=== PATIENT | male | born 1945 | race Caucasian/White ===

== ENCOUNTER 2021-09-20 06:58 | Day surgery (SDC) | payer MEDICARE, SELFPAY ==
[2021-09-20] VITALS (7 sets, daily range): BP systolic 113–135; BP diastolic 57–83; PULSE 55–66; RESP 10–18; TEMP 36.3–36.8; O2SAT 98–100; BMI 24.7
--- NOTE | 2021-09-20 | PATH_ITS ---
[facility] Accession Number: [id number] . 01 Material submitted: . PART A: cecum - CECUM POLYP PART B: colon - DESCENDING COLON POLYP PART C: colon - RECTAL/SIGMOID COLON POLYP X3 . 01 Diagnosis: A. Cecum, Polyp, Biopsy: Tubular adenoma. . B. Descending Colon, Polyp, Biopsy: Hyperplastic polyp. . C. Rectosigmoid Colon, Polyp x3, Biopsies: Hyperplastic polyps. [facility] 09/22/2021 1330 Local . 01 Electronically signed: . Naila Allen MD, Pathologist NPI- [id number] . 01 Gross description: . Part A: CECUM POLYP: Received in formalin is 1 fragment(s) of bender, soft tissue measuring 0.3 x 0.3 x 0.3 cm submitted entirely in 1 cassette(s) Part B: DESCENDING COLON POLYP: Received in formalin is 1 fragment(s) of bender, soft tissue measuring 0.4 x 0.3 x 0.1 cm submitted entirely in 1 cassette(s) Part C: RECTAL/SIGMOID COLON POLYP X3: Received in formalin are 4 fragment(s) of bender, soft tissue measuring 0.4 x 0.3 x 0.2 cm to 0.3 x 0.2 x 0.1 cm submitted entirely in 1 cassette(s) /QBJ 09/21/2021 [facility] Local . 01 Pathologist provided ICD-10: D12.0 . 01 CPT . 822674, 507707, [id number] Specimen Comment: A courtesy copy of this report has been sent to [phone] Performed at: 01 [facility] [address] [place] [address] [address], [place], [place] [id number] MD Chema Ram MD Phone: [phone]
[2021-09-20 07:44] LABS: COVID19 -Nasal RAPID Negative (Negative)
--- NOTE | 2021-09-20 08:03 | PM.HP.1 ---
History of Present Illness History of Present Illness Date Patient Seen: 09/20/21 Time Patient Seen: 08:03 Chief complaint: SDC Narrative: Personal history of colon polyps family history of colon cancer. Patient History Medical History Coronary disease Hypertension PVD (peripheral vascular disease) Stroke Surgical History S/P hernia repair Stented coronary artery Family & Social History Social History: household members spouse Tobacco & Substance use: Smoking Status Former smoker alcohol intake former Substance Use Type does not use Meds Home Medications and Allergies Home Medications Medication Instructions Recorded Confirmed Type amlodipine 5 mg tablet 5 mg PO DAILY 09/20/21 09/20/21 History aspirin 81 mg tablet 81 mg PO DAILY 09/20/21 09/20/21 History atorvastatin 40 mg tablet 40 mg PO DAILY 09/20/21 09/20/21 History clopidogrel 75 mg tablet 75 tab PO DAILY 09/20/21 09/20/21 History lisinopril 30 mg tablet 30 mg PO DAILY 09/20/21 09/20/21 History Allergies Allergy/AdvReac Type Severity Reaction Status Date / Time No Known Drug Allergies Allergy Verified 09/20/21 07:45 Review of Systems Review of Systems ROS: Yes All systems reviewed with the patient and are negative except as otherwise documented Exam Const General: cooperative Nutritional Appearance: average body habitus Orientation: alert HENMT Head: normal to inspection Eyes General: appearance normal, both eyes and all related structures Neck Neck: normal visual inspection Chest Chest: normal inspection of the chest Resp Effort & Inspection: normal respiratory effort Cardio Rate: regular rate Skin General: no rashes or lesions noted Neuro General: patient alert and patient awake Extrem General: normal to inspection Psych Appearance: grossly normal Objective Labs Labs: Laboratory Results - last 24 hr 09/20/21 07:28 SARS-CoV-2 (PCR) Negative Assessment & Plan Assessment & Plan narrative: 76-year-old with a personal history of colon polyps family history of colon cancer. Colonoscopy is planned for today. Time Spent With Patient Critical Care time: I spent a total of [] minutes of critical care time on this patient's care today; this time is exclusive of procedural time.
--- NOTE | 2021-09-20 08:06 | PM.PREOP ---
Pre-operative Note COVID-19 COVID-19 status: Negative Result date/Date tested (Pos, Neg/Pending): 09/20/21 Criteria for continued procedure: Possibility delay results in more complex future surgery or treatment Interval Note History & Physical reviewed/Exam performed by Physician: Yes Changes to H&P: No ASA Class (for procedural sedation): II
[2021-09-20] MEDS: SODIUM CHLORIDE 0.9% 1,000 ML 84 ML IV (08:10)
--- NOTE | 2021-09-20 09:31 | PM.OP.COLON ---
Operative Date/Time/Diagnoses Date of procedure: 09/20/21 Time of procedure: 09:31 Pre-op diagnosis: Personal history of colon polyps family history of colon cancer Post-op diagnosis: same Procedure & Clinicians Study performed: Colonoscopy with cold forceps polypectomy cold snare polypectomy and hot snare polypectomy Same procedure as scheduled: Yes Indications: Family history of colon cancer personal history of colon polyps Surgeon: Moisés Thompson Procedure Notes SCOAP/Timeout: Done Procedure in detail: After the risks and benefits were explained, written and verbal informed consent was obtained. The patient was brought into the procedure room and placed into the left lateral decubitus position. Please see nurse carpenter helper maintenance notes for sedation details. Digital rectal examination was accomplished. The scope was introduced into the patient and advanced under direct visualization to the cecum as identified by the appendiceal orifice and ileocecal valve. The scope was slowly withdrawn to carefully examine the mucosa for any defects or lesions. Comprehensive imaging was accomplished throughout the rectum including the dentate line. The colon was decompressed, the scope was then removed from the patient who tolerated the procedure well. Adult colonoscope Bowel prep adequate Scope withdrawal time: 15 minutes Sedation minutes: 25 Complications: none Impression: There was a diminutive polyp in the cecum removed with cold forceps. In the descending colon there was a diminutive polyp removed with cold snare. In the rectosigmoid there were 3 polyps removed. These ranged in size from 5-6 mm. The 2 larger polyps were removed with hot snare the smallest with cold snare. Grade 1 to grade 2 hemorrhoids were noted on direct views. Endoscopic diagnosis 1. Colon polyps 2. Grade 2 hemorrhoids Post-procedure Plan for aftercare: 1. Await histopathology. 2. Repeat colonoscopy will likely be recommended for 3 years. Disposition: PACU
== END 2021-09-20 10:15 | disposition home or self-care (01) ==
PROVIDERS: Referring Provider Internal Medicine Gastroenterology; Visit Provider Internal Medicine Gastroenterology
PROC: 0DJD8ZZ Inspection of Lower Intestinal Tract, Via Natural or Artificial Opening Endoscopic (ICD-10-PCS; CPT 45378; principal; 2021-09-20 08:30)
DX: Z12.11 Encounter for screening for malignant neoplasm of colon (principal); Z86.010 Personal history of colon polyps; Z80.0 Family history of malignant neoplasm of digestive organs; Z20.822 Contact with and (suspected) exposure to COVID-19; I10 Essential (primary) hypertension; Z86.73 Personal history of transient ischemic attack (TIA), and cerebral infarction without residual deficits; I25.10 Atherosclerotic heart disease of native coronary artery without angina pectoris; I73.9 Peripheral vascular disease, unspecified; Z79.01 Long term (current) use of anticoagulants; Z79.82 Long term (current) use of aspirin; K64.1 Second degree hemorrhoids; D12.0 Benign neoplasm of cecum
CPT/HCPCS: 45385; 45380; 87635; C9803; J2704